=== PATIENT | female | born 1945 | race Caucasian/White ===

== ENCOUNTER 2022-10-29 10:05 | Emergency (ER) | payer MEDICARE ==
[~2022-10-29] VITALS: Ht 157.5 cm; Wt 51.6 kg
[~2022-10-29 10:05] MED LIST: AMOX-422 PO; HYDR-4384 PO; THYR48.7 PO
--- NOTE | 2022-10-29 10:52 | NUR ---
Pt in [facility]. Pt c/o double vision x2 weeks. Pt educated to POC. Pt in agreement. Pending providers eval and treatment.
--- NOTE | 2022-10-29 10:53 | NUR ---
MRI CONTACTED FOR ORDERS
--- NOTE | 2022-10-29 11:27 | NUR ---
PT TO MRI.
--- NOTE | 2022-10-29 12:09 | NUR ---
PT RETURN FROM MRI.
[2022-10-29] MEDS ORDERED: GADOTERATE MEGLUMINE 7.5 MMOL/15 ML VIAL IV ONE (12:12)
[2022-10-29 12:58] VITALS: BP 106/70
== END 2022-10-29 13:01 | disposition home or self-care (01) ==
LOC: ER 10:06
DX: H53.9 Unspecified visual disturbance (principal); C79.31 Secondary malignant neoplasm of brain; E03.9 Hypothyroidism, unspecified; Z88.8 Allergy status to other drugs, medicaments and biological substances; Z79.899 Other long term (current) drug therapy
CPT/HCPCS: 70553; 99285; A9575